=== PATIENT | male | born 1950 | race Caucasian/White ===

== ENCOUNTER 2018-04-21 18:37 | Emergency (ER) | payer BC, OTHER ==
--- NOTE | 2018-04-21 18:47 | EDPHY ---
H & P Smoking Status: Former smoker Time Seen by Provider: 04/21/18 18:42 HPI/ROS: CHIEF COMPLAINT: Head injury and alcohol intoxication HISTORY OF PRESENT ILLNESS: Patient is a 67-year-old male who reports no significant past medical history brought here by EMS after he was found intoxicated at a local bar. States he and his girlfriend were both drinking at a brewery. Denies any trip or fall or loss of consciousness. According to EMS he was seen intoxicated at the bar and tripped on a curb and fell forward and hit his head on the pavement. It is unclear if there is any loss of consciousness. Denies any use of blood thinners. Denies any neck pain or other associated injuries. REVIEW OF SYSTEMS: Constitutional: No fever, no chills. Eyes: No discharge. ENT: No sore throat. Cardiovascular: No chest pain, no palpitations. Respiratory: No cough, no shortness of breath. Gastrointestinal: No abdominal pain, no vomiting. Genitourinary: No hematuria. Musculoskeletal: No back pain. Skin: No rashes. Neurological: No headache. (Stef Whitney) Physical Exam: General Appearance: Alert and no distress, intoxicated Eyes: Pupils equal and round no injection. Head: 3 x 2 scalp contusion over the right parietal region. No signs of skull fracture including no raccoon eyes, Chew signs or hemotympanum. Pupils PERRLA extraocular muscles intact Respiratory: Chest is nontender, lungs are clear to auscultation. Cardiac: regular rate and rhythm. Gastrointestinal: Abdomen is soft and nontender, no masses, bowel sounds normal. Musculoskeletal: Neck is supple and nontender. Extremities have full range of motion and are nontender. Ambulatory without ataxia Skin: No rashes or lesions. (Stef Whitney) Constitutional: Initial Vital Signs Temperature (C) 36.4 C 04/21/18 18:40 Heart Rate 88 04/21/18 18:40 Respiratory Rate 18 04/21/18 18:40 Blood Pressure 127/66 H 04/21/18 18:40 O2 Sat (%) 91 L 04/21/18 18:40 O2 Delivery Mode Room Air Allergies/Adverse Reactions: No Known Allergies Allergy (Verified 04/21/18 18:49) Home Medications: Medication Instructions Recorded Aspirin [Aspirin 325 mg (OTC)] 325 mg PO DAILY 09/15/12 Metoprolol Succinate 50 mg PO DAILY@09/15/12 Dutasteride/Tamsulosin HCl [[place] 1 each PO DAILY@01/29/13 0.5-0.4 Mg Capsule] Multivitamins [Tab-A-Kiara] 1 each PO DAILY 01/29/13 Pharmacist Completed 01/29/13 01/29/13 Medical Decision Making ED Course/Re-evaluation: 67-year-old male here and tox gated with closed head injury. He does have a contusion to the right parietal region. CT scan of the head reveals no intracranial bleed or skull fracture. He is alert oriented and ambulatory moving all 4 extremities. He was discharged to the [facility]. (Stef Whitney) Differential Diagnosis: Skull fracture, cervical spine injury, cardiac arrhythmia, ACS, OD (Stef Whitney) Departure - Departure Disposition: Home, Routine, Self-Care Clinical Impression: Scalp hematoma, Alcohol intoxication Condition: Good Instructions: Abuse of Alcohol (ED) Referrals: Patient,NotPresent [Unknown] - As per Instructions [facility],. [Clinic] - As per Instructions
[2018-04-21 20:14] VITALS: BP 118/76
== END 2018-04-21 21:13 | disposition home or self-care (01) ==
LOC: EDUNIT#
DX: S00.03XA Contusion of scalp, initial encounter (principal); F10.920 Alcohol use, unspecified with intoxication, uncomplicated; W01.0XXA Fall on same level from slipping, tripping and stumbling without subsequent striking against object, initial encounter; Y92.480 Sidewalk as the place of occurrence of the external cause; Y99.8 Other external cause status; R40.2411 Glasgow coma scale score 13-15, in the field [EMT or ambulance]